=== PATIENT | female | born 1990 | race Caucasian/White ===

== ENCOUNTER → 2017-02-09 | Day surgery (SDC) | payer OTHER ==
[~2017-02-09] VITALS: Ht 170.1 cm; Wt 88.5 kg
[~2017-02-09] MED LIST: ALOGLIPTIN6.25 MG PO; AMOXICILLIN500 MG PO; ANAPROX DS550 MG PO; ATARAX25 MG PO; BACTRIM DS 8001 TA1 PO; BENADRYL50 MG PO; BIAXIN500 MG PO; CIPRO500 MG PO; CLARITIN10 MG PO; DOXYCYCLINE MO100 MG PO; ELIMITE 5%60 GM PO; GLYBURIDE5 MG PO; HYDROCODONE BIT1 T11 PO; JANUVIA100 MG PO; METFORMIN1000 MG PO; MIRENA52 MG IU; MOTRIN600 MG PO; MOTRIN800 MG PO; Motrin,Rufen800 MG PO; NAPROSYN500 MG PO; NKHM; PREDNISONE10 MG PO; PRENATAL1 TA1 PO; SUDAFED60 MG PO; TAGAMET400 MG PO; TOBRADEX 0.1% OT; TRAMADOL HCL50 MG PO; ZITHROMAX Z PA250 MG PO; ZYRTEC10 MG PO
--- NOTE | ~2017-02-09 | O ---
[place], [place] OPERATIVE NOTE NAME: MIRANDA RUSS UNIT #: [id number] ROOM: DOCTOR: ADRYAN HINOJOSA MD BIRTHDATE: [birth year] DOS: 02/09/2017 PREOPERATIVE DIAGNOSIS: Retained ventilation tubes. POSTOPERATIVE DIAGNOSIS: Retained ventilation tubes. OPERATION: Removal of retained ventilation tubes. SURGEON: Dr. Hinojosa. ANESTHESIA: General. INDICATIONS: She is being taken to the operating room for removal of retained ventilation tubes. OPERATIVE FINDINGS AND PROCEDURE: Following induction of general anesthesia, the patient was positioned supine on the OR table and draped in a standard fashion for ear surgery. The surgical microscope was brought into the operative field. The ears were examined, and retained synthetic ventilation tubes were removed from the ear canals bilaterally. Topical ciprofloxacin drops were then instilled in both ears. The patient tolerated the procedure well, was awakened and transported to PACU in satisfactory condition. ADRYAN HINOJOSA MD CM:OPRECORD:OPERATIVE NOTE [id number] ADRYAN HINOJOSA MD 02/09/17 1048 interface
[2017-02-09 09:00] VITALS: BP 106/70
[2017-02-09 10:16] VITALS: BP 99/61
[2017-02-09 10:31] VITALS: BP 104/62
[2017-02-09 10:46] VITALS: BP 116/75
[2017-02-09 11:01] VITALS: BP 107/65
[2017-02-09 11:12] VITALS: BP 108/64
== END | disposition home or self-care (01) ==
LOC: SDC 02-04 08:45
DX: H74.8X3 Other specified disorders of middle ear and mastoid, bilateral (principal); E11.9 Type 2 diabetes mellitus without complications; Z98.890 Other specified postprocedural states; Z82.49 Family history of ischemic heart disease and other diseases of the circulatory system; Z80.9 Family history of malignant neoplasm, unspecified; F17.210 Nicotine dependence, cigarettes, uncomplicated

== ENCOUNTER 2017-10-07 21:20 | Emergency (ER) | payer OTHER ==
[2017-10-07] MEDS ORDERED: METOPROLOL SUCC50 M1 PO (21:34)
[2017-10-07 21:35] VITALS: BP 142/92
[2017-10-07] MEDS ORDERED: VISTARIL50 MG PO (21:56)
== END 2017-10-07 22:05 | disposition home or self-care (01) ==
LOC: ED 21:20
DX: L25.9 Unspecified contact dermatitis, unspecified cause (principal); F17.200 Nicotine dependence, unspecified, uncomplicated; F10.10 Alcohol abuse, uncomplicated; Z79.84 Long term (current) use of oral hypoglycemic drugs; Z79.899 Other long term (current) drug therapy

== ENCOUNTER 2018-06-14 17:43 | Inpatient (IN) | payer OTHER ==
[~2018-06-14] VITALS: Ht 170.1 cm; Wt 87.1 kg
--- NOTE | ~2018-06-14 | EKG ---
[place], [place] ELECTROCARDIOGRAM REPORT NAME: MIRANDA RUSS UNIT #: [id number] ROOM: 404 DOCTOR: MUKUL DRAFT REPORT BIRTHDATE: [birth year] [facility] Test Date: 2018-06-14 Test Time: 17:53:47 Pat Name: MIRANDA RUSS Department: Room: 404 Gender: F Food Editor: Araceli Hernadez : 1990 Requested By: BUCKY MONAHAN Order Number: [id number] Reading MD: Mandy Gutierrez MD Measurements Intervals [place] Rate: 101 P: 56 MO: 151 QRS: 61 QRSD: 84 T: 19 QT: 321 QTc: 416 Interpretive Statements Sinus tachycardia Borderline Q waves in inferior leads Electronically Signed On 06-15-2018 12:07:25 PDT by Mandy Gutierrez MD CM:EKGRPT:ELECTROCARDIOGRAM REPORT [id number] 1207 BUCKY GUILLEN DRAFT REPORT BUCKY MONAHAN DO
--- NOTE | ~2018-06-14 | CON ---
[place], [place] REPORT OF CONSULTATION NAME[id number] UNIT #: [id number] ROOM: 404 DOCTOR: DAQUAN AJ MD BIRTHDATE: [birth year] DOS: 06/15/2018 REASON FOR CONSULTATION: Chest pain and tachycardia. HISTORY OF PRESENT ILLNESS: The patient is a 28-year-old patient with history of diabetes, nonmorbid obesity, was admitted for intermittent left-sided chest pain. She described this pain as sharp pain at rest, sometimes on activity. This has been happening for the past couple of weeks and she describes a sharp sensation near the left chest and left breast area. No radiation, no associated nausea, diaphoresis, or dizziness. Sometimes the pain lasts for a few seconds, but yesterday the pain lasted intermittently for most of the day. Again, she has no associated nausea, shortness of breath or diaphoresis. One time, the pain did radiate to her left shoulder. She was complaining of occasional tingling, numbness in the left hand and also occasional heart racing, but no associated dizziness or syncope. Cardiology consulted for further recommendations. She had history of rapid heart rate, was on metoprolol for about a year, but she is still having occasional rapid heart rate, without any associated dizziness or syncope. No nausea, vomiting, diarrhea. No fever and chills, no cough, no hemoptysis. No bladder or bowel symptoms. No musculoskeletal symptoms, no headaches. In the Emergency Room, she had a chest CT that was negative for pulmonary embolism. On the monitor, she had a few episodes of sinus tachycardia, but no significant heart blocks or bradyarrhythmias noted. Apparently had history of sinus arrhythmia in the past and was on metoprolol. The dose was decreased due to low blood pressure. REVIEW OF SYSTEMS: Review of the 10 system negative except as mentioned above. PAST MEDICAL HISTORY: 1. Type 2 diabetes mellitus. 2. Sinus arrhythmia or sinus tachycardia. 3. Non-morbid obesity. PAST SURGICAL HISTORY: History of D and C and . SOCIAL HISTORY: The patient does not use illicit drugs. Former smoker, social alcohol. FAMILY HISTORY: Father had colon cancer. Mother is healthy. ALLERGIES: No known drug allergies. HOME MEDICATIONS: Reviewed. PHYSICAL EXAMINATION: VITAL SIGNS: Blood pressure 120/70, pulse 60, respirations 18, weight 87 kilos, BMI 30. GENERAL: Alert, comfortable, in no acute distress. NECK: Supple, no distended neck veins, no carotid bruit. CHEST: Symmetrical, nontender. LUNGS: Clear to auscultation bilaterally. [place], [place] REPORT OF CONSULTATION NAME: MIRANDA RUSS UNIT #: [id number] ROOM: 404 DOCTOR: DAQUAN AJ MD BIRTHDATE: [birth year] HEART: Regular rhythm, no S3, no palpable thrills. ABDOMEN: Bowel sounds normal, nontender. EXTREMITIES: No edema. Distal pulses palpable. SKIN: Warm and dry. No cyanosis, no clubbing. RECTAL: Deferred. GENITOURINARY: Deferred. NEUROLOGIC: The patient is alert, oriented. No focal neurologic deficit. REVIEW OF THE DIAGNOSTIC TESTS: EKG showed sinus rhythm. Normal QT interval on the monitor. The patient has mild sinus tachycardia on rhythm strips. Her labs and imaging studies reviewed. IMPRESSION: 1. Chest pain, atypical, myocardial infarction ruled out. 2. Borderline sinus tachycardia. 3. Non-morbid obesity. 4. Diabetes type 2. 5. Mild hypokalemia. RECOMMENDATIONS: 1. Continue current medication. We will recommend a 48-hour outpatient Holter monitor. This will be done by Dr. Alirio Cox. 2. If she develops recurrent exertional chest pain, then I would recommend a treadmill stress test. 3. The patient counseled to cut back on her caffeine intake. 4. Check her blood pressure and heart rates while she is getting dizzy at home. 5. Follow up with [facility] in a couple of weeks after Holter monitor. 6. Above treatment plan was discussed with the patient and her mom who is at bedside and all questions answered. Case also discussed with Dr. Alirio Cox. DAQUAN AJ MD CM:CONSTR:REPORT OF CONSULTATION 1219 06/16/18 0223 interface
--- NOTE | ~2018-06-14 | EKG ---
[place], [place] ELECTROCARDIOGRAM REPORT NAME: MIRANDA RUSS UNIT #: [id number] ROOM: 404 DOCTOR: MUKUL DRAFT REPORT BIRTHDATE: [birth year] [facility] Test Date: 2018-06-14 Test Time: 23:18:51 Pat Name: MIRANDA RUSS Department: Room: 404 Gender: F Picking Table Worker: KEYLA : 1990 Requested By: BUCKY MONAHAN Order Number: [id number] Reading MD: Mandy Gutierrez MD Measurements Intervals [place] Rate: 74 P: 35 [place]: 154 QRS: 58 QRSD: 87 T: 30 QT: 369 QTc: 410 Interpretive Statements Sinus rhythm Electronically Signed On 06-15-2018 12:11:14 PDT by Mandy Gutierrez MD CM:EKGRPT:ELECTROCARDIOGRAM REPORT 2318 1211 BUCKY GUILLEN DRAFT REPORT BUCKY MONAHAN DO
--- NOTE | ~2018-06-14 | EKG ---
[place], [place] ELECTROCARDIOGRAM REPORT NAME: MIRANDA RUSS UNIT #: [id number] ROOM: 404 DOCTOR: MUKUL DRAFT REPORT BIRTHDATE: [birth year] [facility] Test Date: 2018-06-14 Test Time: 20:28:45 Pat Name: MIRANDA RUSS Department: Room: 404 Gender: F Manager Perioperative: MANUEL : 1990 Requested By: BUCKY MONAHAN Order Number: [id number] Reading MD: Mandy Gutierrez MD Measurements Intervals [place] Rate: 86 P: 48 [place]: 154 QRS: 54 QRSD: 86 T: 30 QT: 347 QTc: 415 Interpretive Statements Sinus rhythm Electronically Signed On 06-15-2018 12:10:34 PDT by Mandy Gutierrez MD CM:EKGRPT:ELECTROCARDIOGRAM REPORT 27 1210 BUCKY GUILLEN DRAFT REPORT BUCKY MONAHAN DO
[~2018-06-14 17:43] MED LIST changes: +METOPROLOL SUCC50 M1 PO; +VISTARIL50 MG PO
[2018-06-14 17:52] VITALS: BP 127/73
[2018-06-14 18:24] LABS: BASO # 0.1 10*3/uL (0.0-0.1); BASO % 0.5 % (0.0-1.0); EOS # 0.2 10*3/uL (0.0-0.4); EOS % 1.6 % (1.0-4.0); HEMATOCRIT 43.1 % (37.0-47.0); HEMOGLOBIN 14.8 g/dl (12.0-16.0); LYMPH # 4.1 10*3/uL (1.3-4.4); LYMPH % 32.9 % (27.0-41.0); MEAN CELL VOLUME 85.7 fl (81.0-99.0); MEAN CORPUSCULAR HGB 29.4 pg (27.0-31.0); MEAN CORPUSCULAR HGB CONC 34.3 g/dl (33.0-37.0); MEAN PLATELET VOLUME 11.5 fl (9.6-12.3); MONO # 0.6 10*3/uL (0.1-1.0); MONO % 4.7 % (3.0-9.0); NEUT # 7.5 10*3/uL (2.3-7.9); PLATELET COUNT AUTOMATED 210 10*3/uL (130-400); RED BLOOD COUNT 5.03 10*6/uL (4.10-5.10); RED CELL DISTRI WIDTH 12.7 % (0-14.5); WHITE BLOOD COUNT 12.4 10*3/uL (4.8-10.8)
[2018-06-14 18:35] LABS: ACT PARTIAL THROMBO TIME 25.6 SECONDS (20.8-31.5)
[2018-06-14 18:41] LABS: BETA-HCG, QUANT < 1.0 mIU/mL (1-3); LIPASE 199 U/L (73-393)
[2018-06-14 19:02] VITALS: BP 104/58
[2018-06-14 19:25] LABS: ALBUMIN 4.1 gm/dl (3.1-4.5); ALKALINE PHOSPHATASE 93 U/L (45-117); BUN 8 mg/dl (7-24); CHLORIDE 104 mmol/L (98-107); CREATININE 0.63 mg/dL (0.55-1.02); POTASSIUM 3.5 mmol/L (3.5-5.1); SGOT/AST 35 IU/L (3-35); SGPT/ALT 66 U/L (12-78); SODIUM 138 mmol/L (136-145); TOTAL PROTEIN 7.3 gm/dL (6.4-8.2)
[2018-06-14 19:26] LABS: TROPONIN I < 0.015 ng/ml (<0.045)
[2018-06-14 19:38] VITALS: BP 115/75
[2018-06-14 21:20] VITALS: BP 105/63
[2018-06-14 22:57] VITALS: BP 108/66
[2018-06-14 23:45] VITALS: BP 120/71
[2018-06-14] MEDS ORDERED: BASAG SOL SQ (23:59)
[2018-06-15] MEDS ORDERED: ALOGLIPTIN25 MG PO (00:02)
[2018-06-15 06:26] LABS: BASO # 0.1 10*3/uL (0.0-0.1); BASO % 0.5 % (0.0-1.0); EOS # 0.3 10*3/uL (0.0-0.4); EOS % 2.3 % (1.0-4.0); HEMATOCRIT 41.3 % (37.0-47.0); HEMOGLOBIN 13.8 g/dl (12.0-16.0); LYMPH # 4.3 10*3/uL (1.3-4.4); LYMPH % 37.2 % (27.0-41.0); MEAN CELL VOLUME 86.9 fl (81.0-99.0); MEAN CORPUSCULAR HGB 29.1 pg (27.0-31.0); MEAN CORPUSCULAR HGB CONC 33.4 g/dl (33.0-37.0); MONO # 0.7 10*3/uL (0.1-1.0); MONO % 5.9 % (3.0-9.0); NEUT # 6.3 10*3/uL (2.3-7.9); NEUT % 53.7 % (47.0-73.0); PLATELET COUNT AUTOMATED 198 10*3/uL (130-400); RED BLOOD COUNT 4.75 10*6/uL (4.10-5.10); RED CELL DISTRI WIDTH 12.5 % (0-14.5); WHITE BLOOD COUNT 11.7 10*3/uL (4.8-10.8)
[2018-06-15 06:35] LABS: CHLORIDE 105 mmol/L (98-107); POTASSIUM 3.3 mmol/L (3.5-5.1); SODIUM 140 mmol/L (136-145)
[2018-06-15 06:54] LABS: ALBUMIN 3.3 gm/dl (3.1-4.5); ALKALINE PHOSPHATASE 75 U/L (45-117); BUN 8 mg/dl (7-24); CHOLESTEROL 156 mg/dL (<200); CREATININE 0.69 mg/dL (0.55-1.02); HDL CHOLESTEROL 26 mg/dl (40-60); LDL CHOLESTEROL 96 mg/dL (9-159); PHOSPHOROUS 3.7 mg/dL (2.5-4.9); SGOT/AST 34 IU/L (3-35); SGPT/ALT 61 U/L (12-78); TOTAL PROTEIN 6.6 gm/dL (6.4-8.2); TRIGLYCERIDES 171 mg/dl (<150); VLDL CHOLESTEROL 34 mg/dL (6-40)
[2018-06-15 07:09] LABS: VITAMIN D, 25-HYDROXY 20.8 ng/mL (30-100)
[2018-06-15 09:00] VITALS: BP 94/50
[2018-06-15] MEDS ORDERED: VITAMIN D31000 UNI1 PO (11:38)
[2018-06-15 12:00] VITALS: BP 111/68
== END 2018-06-15 13:32 | disposition home or self-care (01) | DRG 313 ==
LOC: ED 17:43 → EDHOLD 22:11 → 4E 22:11
PROVIDERS: Emergency Medicine; Internal Medicine
DX: R07.89 Other chest pain (principal); R00.0 Tachycardia, unspecified; K76.0 Fatty (change of) liver, not elsewhere classified; D72.829 Elevated white blood cell count, unspecified; F17.210 Nicotine dependence, cigarettes, uncomplicated; E66.8 Other obesity; E11.65 Type 2 diabetes mellitus with hyperglycemia; E11.42 Type 2 diabetes mellitus with diabetic polyneuropathy; E87.6 Hypokalemia; Z98.891 History of uterine scar from previous surgery; Z80.0 Family history of malignant neoplasm of digestive organs; Z80.8 Family history of malignant neoplasm of other organs or systems; Z82.49 Family history of ischemic heart disease and other diseases of the circulatory system; Z79.84 Long term (current) use of oral hypoglycemic drugs; Z79.4 Long term (current) use of insulin; Z68.30 Body mass index [BMI] 30.0-30.9, adult

== ENCOUNTER → 2019-05-18 | Outpatient (CLI) | payer OTHER ==
[~2019-05-18] MED LIST changes: +ALOGLIPTIN25 MG PO; +BASAG SOL SQ; +VITAMIN D31000 UNI1 PO
[2019-05-19 15:08] LABS: RUBEOLA AB IGG 096560 <13.5 AU/mL (Immune >16.4); VARICELLA-ZOSTER IGG 096206 1014 index (Immune >165)
== END | disposition home or self-care (01) ==
LOC: LAB 09:09
PROVIDERS: Family Medicine
DX: Z02.0 Encounter for examination for admission to educational institution (principal)

== ENCOUNTER 2019-10-24 21:36 | Inpatient (IN) | payer OTHER ==
[~2019-10-24] VITALS: Ht 170.2 cm; Wt 88.0 kg
[~2019-10-24 21:36] MED LIST changes: +GLUCOPHAGE500 M1 PO; -METFORMIN1000 MG PO
[2019-10-24 21:40] VITALS: BP 120/90
[2019-10-24 22:46] LABS: BASO # 0.1 10*3/uL (0.0-0.1); BASO % 0.7 % (0.0-1.0); EOS # 0.2 10*3/uL (0.0-0.4); EOS % 2.8 % (1.0-4.0); HEMATOCRIT 39.1 % (37.0-47.0); HEMOGLOBIN 13.2 g/dl (12.0-16.0); LYMPH # 3.4 10*3/uL (1.3-4.4); LYMPH % 41.3 % (27.0-41.0); MEAN CELL VOLUME 77.9 fl (81.0-99.0); MEAN CORPUSCULAR HGB 26.3 pg (27.0-31.0); MEAN CORPUSCULAR HGB CONC 33.8 g/dl (33.0-37.0); MEAN PLATELET VOLUME 10.9 fl (9.6-12.3); MONO # 0.4 10*3/uL (0.1-1.0); MONO % 4.8 % (3.0-9.0); NEUT # 4.2 10*3/uL (2.3-7.9); NEUT % 50.3 % (47.0-73.0); PLATELET COUNT AUTOMATED 231 10*3/uL (130-400); RED BLOOD COUNT 5.02 10*6/uL (4.10-5.10); RED CELL DISTRI WIDTH 15.8 % (0-14.5); WHITE BLOOD COUNT 8.3 10*3/uL (4.8-10.8)
[2019-10-24 22:59] LABS: ALBUMIN 3.7 gm/dl (3.1-4.5); ALKALINE PHOSPHATASE 118 U/L (45-117); BUN 13 mg/dl (7-24); CHLORIDE 107 mmol/L (98-107); CREATININE 0.81 mg/dL (0.55-1.02); POTASSIUM 3.6 mmol/L (3.5-5.1); SGOT/AST 40 IU/L (3-35); SGPT/ALT 88 U/L (12-78); SODIUM 139 mmol/L (136-145); TOTAL PROTEIN 7.1 gm/dL (6.4-8.2)
[2019-10-25 01:08] VITALS: BP 132/86; BP 98/74
--- NOTE | 2019-10-25 01:08 | NUR ---
A 29, admitted to ICCU, under the services of FELICE Moore MD with a diagnosis of anaphylactic reaction and hives. Chief complaint is hives with no difficulty swallowing or shortness of breath. Patient arrived via stretcher from ER. Monitor applied. Initial assessment completed. Vital signs taken and recorded. FELICE MOORE MD notified of admission to the unit. Orders received. See assessment for past medical history, medications and allergies. Patient and/or family oriented to unit. [facility] ICCU visitation policy reviewed. Clothing/patient valuable form completed. TRISH PALMER
[2019-10-25 01:17] VITALS: BP 132/86
[2019-10-25] MEDS ORDERED: PRENATE AM TAB1 EACH PO (01:26)
--- NOTE | 2019-10-25 03:56 | NUR ---
pt. given vistaril at 0339 for itching. grecia dimas rn
[2019-10-25 04:00] VITALS: BP 104/62
--- NOTE | 2019-10-25 04:06 | NUR ---
PT. SLEEPING, VISTARIL EFFECTIVE.
--- NOTE | 2019-10-25 07:09 | NUR ---
Shift chart check completed.24 HR chart check completed.
[2019-10-25 08:00] VITALS: BP 108/80
--- NOTE | 2019-10-25 08:26 | NUR ---
ON ASSESSMENT PT ALERT, ORIENTED, UP IN ROOM. HAS HIVES ON HANDS, FLAT AND SLIGHTLY ITCHY. NONE ON FACE. NO SHORTNESS OF BREATH OR WHEEZE. HEP LOCK INTACT. SEE ALL APPROPRIATE INTERVENTIONS.
[2019-10-25 08:42] LABS: ALBUMIN 3.5 gm/dl (3.1-4.5); ALKALINE PHOSPHATASE 113 U/L (45-117); BUN 11 mg/dl (7-24); CHLORIDE 110 mmol/L (98-107); CREATININE 0.86 mg/dL (0.55-1.02); POTASSIUM 4.2 mmol/L (3.5-5.1); SGOT/AST 32 IU/L (3-35); SGPT/ALT 79 U/L (12-78); SODIUM 139 mmol/L (136-145); TOTAL PROTEIN 6.9 gm/dL (6.4-8.2)
--- NOTE | 2019-10-25 09:35 | NUR ---
VISTARIL FOR ITCHING OF PALMS AND KNEES, BUT NO NEW HIVES.
--- NOTE | 2019-10-25 09:45 | NUR ---
DR VIRAMONTES'S RESIDENT, DR PINON IN TO SEE PT.
--- NOTE | 2019-10-25 10:11 | NUR ---
GIS DEVELOPER, NAYELI, NOTIFIED THAT PATIENT NOW "NON-MONITORED".
--- NOTE | 2019-10-25 11:01 | NUR ---
EARLIER VISTARIL EFFECTIVE. PT DOZING EASILY WITH NO VOICED C/O ITCHING AT THIS TIME.
[2019-10-25 12:00] VITALS: BP 107/64
--- NOTE | 2019-10-25 13:30 | NUR ---
DR SUAREZ IN TO SEE PATIENT.
--- NOTE | 2019-10-25 13:46 | NUR ---
PT WILL BE BEING DISCHARGED TO HOME. HEP LOCK REMOVED.
[2019-10-25] MEDS ORDERED: CLARITIN10 MG PO (14:04)
[2019-10-25] MEDS ORDERED: ZANTAC 150150 MG PO (14:04)
[2019-10-25] MEDS ORDERED: EPIPEN 2-P0.3 MG/0.3 IJ (14:14)
--- NOTE | 2019-10-25 14:41 | NUR ---
DISCHARGED, AMBULATORY TO THE FRONT LOBBY WHERE HER BOYFRIEND/CHILDREN WERE PICKING HER UP. DISCHARGED IN STABLE CONDITION, WITH ALL OF HER BELONGINGS.
== END 2019-10-25 14:41 | disposition home or self-care (01) | DRG 385 ==
LOC: ED 21:36 → EDHOLD 10-25 00:14 → ICCU 10-25 00:57
PROVIDERS: Emergency Medicine; Internal Medicine; ADMIT Internal Medicine
DX: L50.9 Urticaria, unspecified (principal); L29.9 Pruritus, unspecified; E11.65 Type 2 diabetes mellitus with hyperglycemia; E11.42 Type 2 diabetes mellitus with diabetic polyneuropathy; E66.9 Obesity, unspecified; I10 Essential (primary) hypertension; E55.9 Vitamin D deficiency, unspecified; Z68.30 Body mass index [BMI] 30.0-30.9, adult; Z79.4 Long term (current) use of insulin; Z91.040 Latex allergy status; Z79.899 Other long term (current) drug therapy; Z87.891 Personal history of nicotine dependence; Z80.0 Family history of malignant neoplasm of digestive organs; Z82.49 Family history of ischemic heart disease and other diseases of the circulatory system; R71.8 Other abnormality of red blood cells; R74.0 Nonspecific elevation of levels of transaminase and lactic acid dehydrogenase [LDH]; R74.8 Abnormal levels of other serum enzymes

== ENCOUNTER 2020-07-04 10:34 | Emergency (ER) | payer OTHER ==
[~2020-07-04] VITALS: Wt 86.2 kg
[~2020-07-04 10:34] MED LIST changes: +EPIPEN 2-P0.3 MG/0.3 IJ; +PRENATE AM TAB1 EACH PO; +ZANTAC 150150 MG PO
[2020-07-04 11:37] LABS: BASO # 0.1 10*3/uL (0.0-0.1); BASO % 0.4 % (0.0-1.0); EOS # 0.1 10*3/uL (0.0-0.4); EOS % 1.1 % (1.0-4.0); HEMATOCRIT 46.7 % (37.0-47.0); LYMPH # 2.9 10*3/uL (1.3-4.4); LYMPH % 25.3 % (27.0-41.0); MEAN CELL VOLUME 84.6 fl (81.0-99.0); MEAN CORPUSCULAR HGB 28.8 pg (27.0-31.0); MEAN PLATELET VOLUME 11.8 fl (9.6-12.3); MONO # 0.5 10*3/uL (0.1-1.0); MONO % 4.1 % (3.0-9.0); NEUT # 7.9 10*3/uL (2.3-7.9); NEUT % 68.8 % (47.0-73.0); PLATELET COUNT AUTOMATED 223 10*3/uL (130-400); RED BLOOD COUNT 5.52 10*6/uL (4.10-5.10); RED CELL DISTRI WIDTH 12.7 % (0-14.5); WHITE BLOOD COUNT 11.4 10*3/uL (4.8-10.8)
[2020-07-04 11:52] VITALS: BP 108/77
[2020-07-04 11:53] LABS: ACT PARTIAL THROMBO TIME 30.6 SECONDS (20.0-32.1)
[2020-07-04 11:54] LABS: ALBUMIN 4.1 gm/dl (3.1-4.5); ALKALINE PHOSPHATASE 99 U/L (45-117); BUN 9 mg/dl (7-24); CHLORIDE 106 mmol/L (98-107); CREATININE 0.83 mg/dL (0.55-1.02); LIPASE 146 U/L (73-393); POTASSIUM 3.6 mmol/L (3.5-5.1); SGOT/AST 34 IU/L (3-35); SGPT/ALT 63 U/L (12-78); SODIUM 136 mmol/L (136-145)
[2020-07-04 11:55] LABS: BETA-HCG, QUANT < 1.0 mIU/mL (1-3); TROPONIN I < 0.015 ng/ml (<0.045)
== END 2020-07-04 13:05 | disposition home or self-care (01) ==
LOC: ED 10:34
PROVIDERS: Emergency Medicine
DX: R03.0 Elevated blood-pressure reading, without diagnosis of hypertension (principal); R00.2 Palpitations; E11.9 Type 2 diabetes mellitus without complications; F17.200 Nicotine dependence, unspecified, uncomplicated; Z91.040 Latex allergy status; Z79.899 Other long term (current) drug therapy; Z79.4 Long term (current) use of insulin

== ENCOUNTER → 2020-08-14 | Outpatient (CLI) | payer OTHER ==
[2020-08-14 11:21] LABS: FREE T4 1.15 ng/dl (0.76-1.46)
[2020-08-14 11:26] LABS: THYROID STIM HORMONE (HS) 1.74 uIU/ml (0.358-4.75)
== END | disposition home or self-care (01) ==
LOC: CARD 07-15 08:30 → LAB 00:18 → CARD 10:00 → LAB 10:00
PROVIDERS: ATTEND Internal Medicine
DX: R00.2 Palpitations (principal)

== ENCOUNTER → 2020-09-04 | Outpatient (CLI) | payer OTHER | END | disposition home or self-care (01) | LOC: CARD 09:30 | PROVIDERS: ATTEND Internal Medicine | DX: I47.1 Supraventricular tachycardia (principal); R94.31 Abnormal electrocardiogram [ECG] [EKG] ==

== ENCOUNTER 2020-11-15 23:46 | Emergency (ER) | payer OTHER ==
[~2020-11-15] VITALS: Ht 170.1 cm; Wt 86.2 kg
[2020-11-16 00:03] VITALS: BP 144/81
[2020-11-16] MEDS ORDERED: KETOROLAC10 MG PO (00:44)
[2020-11-16] MEDS ORDERED: CYCLOBENZAPRINE10 MG PO (00:44)
== END 2020-11-16 01:00 | disposition home or self-care (01) ==
LOC: ED 23:46
DX: M25.511 Pain in right shoulder (principal); G58.8 Other specified mononeuropathies; Z91.040 Latex allergy status; Z79.899 Other long term (current) drug therapy; Z98.890 Other specified postprocedural states; Z87.891 Personal history of nicotine dependence

== ENCOUNTER → 2020-12-16 | Outpatient (CLI) | payer OTHER ==
[~2020-12-16] MED LIST changes: +CYCLOBENZAPRINE10 MG PO; +KETOROLAC10 MG PO
== END | disposition home or self-care (01) ==
LOC: US 07:30
PROVIDERS: ATTEND Internal Medicine
DX: K76.0 Fatty (change of) liver, not elsewhere classified (principal); N28.1 Cyst of kidney, acquired; R10.13 Epigastric pain

== ENCOUNTER → 2020-12-19 | Outpatient (CLI) | payer OTHER | END | disposition home or self-care (01) | LOC: NM 07:00 | PROVIDERS: ATTEND Internal Medicine | DX: R10.11 Right upper quadrant pain (principal); R14.0 Abdominal distension (gaseous) ==

== ENCOUNTER 2020-12-24 11:56 | Emergency (ER) | payer OTHER ==
[~2020-12-24] VITALS: Ht 170.1 cm; Wt 87.1 kg
[2020-12-24 12:11] VITALS: BP 124/89
[2020-12-24 13:33] LABS: BILIRUBIN Negative (Negative); BLOOD Negative (Negative); CLARITY Clear (Clear); COLOR Yellow (Yellow); GLUCOSE Negative (Negative); KETONE Negative (Negative); LEUKO ESTERASE Negative (Negative); NITRITE Negative (Negative)
[2020-12-24 13:54] LABS: BACTERIA 1+; MUCOUS 1+; RBC 0-2 rbc/hpf (0-2); WBC 0-2 wbc/hpf (0-5)
[2020-12-24 14:07] LABS: BASO # 0.1 10*3/uL (0.0-0.1); BASO % 0.5 % (0.0-1.0); EOS # 0.2 10*3/uL (0.0-0.4); EOS % 1.5 % (1.0-4.0); HEMATOCRIT 47.4 % (37.0-47.0); LYMPH # 3.9 10*3/uL (1.3-4.4); LYMPH % 36.7 % (27.0-41.0); MEAN CELL VOLUME 87.8 fl (81.0-99.0); MEAN CORPUSCULAR HGB 28.9 pg (27.0-31.0); MEAN CORPUSCULAR HGB CONC 32.9 g/dl (33.0-37.0); MEAN PLATELET VOLUME 11.2 fl (9.6-12.3); MONO # 0.5 10*3/uL (0.1-1.0); MONO % 4.5 % (3.0-9.0); NEUT # 6.1 10*3/uL (2.3-7.9); NEUT % 56.5 % (47.0-73.0); PLATELET COUNT AUTOMATED 163 10*3/uL (130-400); RED CELL DISTRI WIDTH 12.8 % (0-14.5); WHITE BLOOD COUNT 10.7 10*3/uL (4.8-10.8)
[2020-12-24 14:22] LABS: ALBUMIN 3.9 gm/dl (3.1-4.5); ALKALINE PHOSPHATASE 82 U/L (45-117); BUN 7 mg/dl (7-24); CHLORIDE 107 mmol/L (98-107); CREATININE 0.72 mg/dL (0.55-1.02); LIPASE 104 U/L (73-393); POTASSIUM 3.7 mmol/L (3.5-5.1); SGOT/AST 18 IU/L (3-35); SGPT/ALT 44 U/L (12-78); SODIUM 138 mmol/L (136-145); TOTAL PROTEIN 7.5 gm/dL (6.4-8.2)
== END 2020-12-24 16:56 | disposition home or self-care (01) ==
LOC: ED 11:56
PROVIDERS: Emergency Medicine; Physician Assistant
DX: R10.9 Unspecified abdominal pain (principal); Z91.040 Latex allergy status; Z79.899 Other long term (current) drug therapy; Z79.4 Long term (current) use of insulin; Z98.890 Other specified postprocedural states; Z87.891 Personal history of nicotine dependence

== ENCOUNTER → 2020-12-30 | Outpatient (CLI) | payer OTHER | END | disposition home or self-care (01) | LOC: NM 00:41 | PROVIDERS: ATTEND Internal Medicine | DX: K30 Functional dyspepsia (principal) ==

== ENCOUNTER 2021-11-25 08:50 | Emergency (ER) | payer OTHER ==
[~2021-11-25] VITALS: Ht 170.1 cm; Wt 86.2 kg
[2021-11-25 08:54] VITALS: BP 112/76
== END 2021-11-25 09:52 | disposition home or self-care (01) ==
LOC: ED 08:50
DX: L30.9 Dermatitis, unspecified (principal); Z91.040 Latex allergy status; Z98.890 Other specified postprocedural states; Z87.891 Personal history of nicotine dependence

== ENCOUNTER 2021-11-26 20:35 | Emergency (ER) | payer OTHER ==
[2021-11-26 20:40] VITALS: BP 134/92
[2021-11-26 21:14] LABS: HEMATOCRIT 42.2 % (37.0-47.0); MEAN CELL VOLUME 84.1 fl (81.0-99.0); MEAN CORPUSCULAR HGB 28.5 pg (27.0-31.0); MEAN CORPUSCULAR HGB CONC 33.9 g/dl (33.0-37.0); MEAN PLATELET VOLUME 11.5 fl (9.6-12.3); PLATELET COUNT AUTOMATED 228 10*3/uL (130-400); RED BLOOD COUNT 5.02 10*6/uL (4.10-5.10); RED CELL DISTRI WIDTH 12.7 % (0-14.5); WHITE BLOOD COUNT 14.5 10*3/uL (4.8-10.8)
[2021-11-26 21:16] LABS: MANUAL DIFF REFLEX YES
[2021-11-26 21:27] LABS: ALKALINE PHOSPHATASE 89 U/L (45-117); BUN 14 mg/dl (7-24); CHLORIDE 106 mmol/L (98-107); CREATININE 0.92 mg/dL (0.55-1.02); POTASSIUM 3.5 mmol/L (3.5-5.1); SGOT/AST 22 IU/L (3-35); SGPT/ALT 52 U/L (12-78); SODIUM 138 mmol/L (136-145); TOTAL PROTEIN 7.2 gm/dL (6.4-8.2)
[2021-11-26 21:45] LABS: ATYPICAL LYMPHS 5 % (0-0); PLATELET SUFFICIENCY NORMAL (NORMAL); TOTAL CELLS COUNTED 100 #CELLS
== END 2021-11-26 22:46 | disposition home or self-care (01) ==
LOC: ED 20:35
PROVIDERS: Internal Medicine
DX: T78.49XA Other allergy, initial encounter (principal); E11.65 Type 2 diabetes mellitus with hyperglycemia; D72.829 Elevated white blood cell count, unspecified; Z91.040 Latex allergy status; Z79.899 Other long term (current) drug therapy; Z98.890 Other specified postprocedural states; Z96.22 Myringotomy tube(s) status; Z87.891 Personal history of nicotine dependence; X58.XXXA Exposure to other specified factors, initial encounter

== ENCOUNTER → 2021-12-16 | Outpatient (CLI) | payer OTHER ==
[2021-12-17 13:07] LABS: t-TRANSGLUTAMINASE (tTG) IGA <2 U/mL (0-3)
[2021-12-18 12:08] LABS: C1 ESTERACE INHIB,TOTAL 29 mg/dL (21-39)
== END | disposition home or self-care (01) ==
LOC: LAB 08:41
PROVIDERS: ATTEND Internal Medicine
DX: T78.2XXA Anaphylactic shock, unspecified, initial encounter (principal); X58.XXXA Exposure to other specified factors, initial encounter

== ENCOUNTER 2022-04-14 09:18 | Emergency (ER) | payer BC, OTHER ==
[~2022-04-14] VITALS: Ht 170.1 cm; Wt 81.6 kg
[2022-04-14 09:25] VITALS: BP 126/90
[2022-04-14] MEDS ORDERED: ATORVASTATIN CA20 M1 PO (09:26)
[2022-04-14] MEDS ORDERED: CITALOPRAM20 MG PO (09:26)
[2022-04-14] MEDS ORDERED: LANTUS SOL100 UNIT/1 SQ (09:27)
[2022-04-14] MEDS ORDERED: Lopressor25 MG PO (09:27)
[2022-04-14] MEDS ORDERED: TOPAMAX15 M1 PO (09:28)
[2022-04-14] MEDS ORDERED: TRULICITY1.5 MG/0.5 SC (09:28)
[2022-04-14] MEDS ORDERED: OMEPRAZOLE40 MG PO (09:28)
[2022-04-14] MEDS ORDERED: TOPIRAMATE25 M3 PO (09:29)
[2022-04-14 10:02] LABS: BILIRUBIN Negative (Negative); BLOOD Negative (Negative); CLARITY Clear (Clear); COLOR Yellow (Yellow); GLUCOSE Negative (Negative); KETONE Negative (Negative); LEUKO ESTERASE Negative (Negative); NITRITE Negative (Negative)
[2022-04-14 10:14] LABS: BACTERIA TRACE; MUCOUS 1+
[2022-04-14 10:24] LABS: BASO # 0.1 10*3/uL (0.0-0.1); BASO % 0.5 % (0.0-1.0); EOS # 0.2 10*3/uL (0.0-0.4); EOS % 1.9 % (1.0-4.0); LYMPH # 2.8 10*3/uL (1.3-4.4); LYMPH % 25.9 % (27.0-41.0); MEAN CORPUSCULAR HGB 29.2 pg (27.0-31.0); MEAN CORPUSCULAR HGB CONC 34.4 g/dl (33.0-37.0); MEAN PLATELET VOLUME 11.7 fl (9.6-12.3); MONO # 0.5 10*3/uL (0.1-1.0); MONO % 4.8 % (3.0-9.0); NEUT # 7.3 10*3/uL (2.3-7.9); NEUT % 66.5 % (47.0-73.0); PLATELET COUNT AUTOMATED 191 10*3/uL (130-400); RED BLOOD COUNT 5.06 10*6/uL (4.10-5.10); RED CELL DISTRI WIDTH 12.8 % (0-14.5); WHITE BLOOD COUNT 10.9 10*3/uL (4.8-10.8)
[2022-04-14 10:41] LABS: ALKALINE PHOSPHATASE 94 U/L (45-117); BUN 6 mg/dl (7-24); CHLORIDE 107 mmol/L (98-107); CREATININE 0.71 mg/dL (0.55-1.02); LIPASE 186 U/L (73-393); SGOT/AST 28 IU/L (3-35); SGPT/ALT 59 U/L (12-78); SODIUM 136 mmol/L (136-145); TOTAL PROTEIN 7.2 gm/dL (6.4-8.2)
[2022-04-14] MEDS ORDERED: LOMOTIL 2.5-0.1 EACH PO (15:30)
== END 2022-04-14 16:35 | disposition home or self-care (01) ==
LOC: ED 09:18
PROVIDERS: Emergency Medicine
DX: B34.9 Viral infection, unspecified (principal); Z20.822 Contact with and (suspected) exposure to COVID-19; R19.7 Diarrhea, unspecified; I10 Essential (primary) hypertension; Z91.040 Latex allergy status; Z79.899 Other long term (current) drug therapy; Z98.890 Other specified postprocedural states; Z87.891 Personal history of nicotine dependence

== ENCOUNTER 2024-05-08 21:49 | Emergency (ER) | payer BC ==
[~2024-05-08] VITALS: Ht 170.1 cm; Wt 79.8 kg
[~2024-05-08 21:49] MED LIST changes: +ATORVASTATIN CA20 M1 PO; +CITALOPRAM20 MG PO; +LANTUS SOL100 UNIT/1 SQ; +LOMOTIL 2.5-0.1 EACH PO; +Lopressor25 MG PO; +OMEPRAZOLE40 MG PO; +TOPAMAX15 M1 PO; +TOPIRAMATE25 M3 PO; +TRULICITY1.5 MG/0.5 SC
[2024-05-08 21:56] VITALS: BP 106/82
[2024-05-08 22:28] LABS: BASO # 0.1 10*3/uL (0.0-0.1); BASO % 0.8 % (0.0-1.0); EOS # 0.3 10*3/uL (0.0-0.4); EOS % 2.8 % (1.0-4.0); HEMATOCRIT 42.3 % (37.0-47.0); LYMPH # 3.2 10*3/uL (1.3-4.4); LYMPH % 36.2 % (27.0-41.0); MEAN CELL VOLUME 83.8 fl (81.0-99.0); MEAN CORPUSCULAR HGB 28.7 pg (27.0-31.0); MEAN CORPUSCULAR HGB CONC 34.3 g/dl (33.0-37.0); MEAN PLATELET VOLUME 11.1 fl (9.6-12.3); MONO # 0.5 10*3/uL (0.1-1.0); MONO % 5.7 % (3.0-9.0); NEUT # 4.8 10*3/uL (2.3-7.9); NEUT % 54.2 % (47.0-73.0); PLATELET COUNT AUTOMATED 195 10*3/uL (130-400); RED BLOOD COUNT 5.05 10*6/uL (4.10-5.10); WHITE BLOOD COUNT 8.9 10*3/uL (4.8-10.8)
[2024-05-08 22:50] LABS: BUN 7 mg/dl (9-23); CHLORIDE 107 mmol/L (98-107); POTASSIUM 3.6 mmol/L (3.4-5.1)
[2024-05-09] MEDS ORDERED: methylPREDNISolone sod succ 125 MG VIAL IM ONE (00:05)
== END 2024-05-09 00:09 | disposition home or self-care (01) ==
LOC: ED 21:49
PROVIDERS: Internal Medicine
DX: B34.9 Viral infection, unspecified (principal); Z20.822 Contact with and (suspected) exposure to COVID-19; R42 Dizziness and giddiness; E11.9 Type 2 diabetes mellitus without complications; Z91.040 Latex allergy status; Z98.890 Other specified postprocedural states; Z87.891 Personal history of nicotine dependence

== ENCOUNTER 2024-12-12 10:20 | Emergency (ER) | payer BC ==
[~2024-12-12] VITALS: Ht 170.1 cm; Wt 79.0 kg
[2024-12-12 10:35] VITALS: BP 100/72
[2024-12-12] MEDS ORDERED: SERTRALINE HYDR50 MG PO (10:37)
[2024-12-12] MEDS ORDERED: FARXIGA10 M1 PO (10:37)
[2024-12-12] MEDS ORDERED: MOUNJARO5 MG/0.51 SQ (10:38)
[2024-12-12 11:17] LABS: BASO # 0.1 10*3/uL (0.0-0.1); BASO % 0.6 % (0.0-1.0); EOS # 0.1 10*3/uL (0.0-0.4); EOS % 1.6 % (1.0-4.0); HEMATOCRIT 42.7 % (37.0-47.0); MEAN CELL VOLUME 81.8 fl (81.0-99.0); MEAN CORPUSCULAR HGB 28.2 pg (27.0-31.0); MEAN CORPUSCULAR HGB CONC 34.4 g/dl (33.0-37.0); MONO # 0.4 10*3/uL (0.1-1.0); NEUT # 5.2 10*3/uL (2.3-7.9); NEUT % 62.9 % (47.0-73.0); PLATELET COUNT AUTOMATED 186 10*3/uL (130-400); RED BLOOD COUNT 5.22 10*6/uL (4.10-5.10); RED CELL DISTRI WIDTH 13.2 % (0-14.5); WHITE BLOOD COUNT 8.3 10*3/uL (4.8-10.8)
[2024-12-12 11:28] LABS: ACT PARTIAL THROMBO TIME 28.5 SECONDS (20.0-32.1)
[2024-12-12 11:33] LABS: BUN 9 mg/dl (9-23); CHLORIDE 106 mmol/L (98-107); POTASSIUM 3.7 mmol/L (3.4-5.1)
[2024-12-12] MEDS ORDERED: traMADol Hydrochloride 50 MG TAB PO ONE (13:40)
[2024-12-12] MEDS ORDERED: MELOXICAM15 MG PO (13:44)
== END 2024-12-12 13:56 | disposition home or self-care (01) ==
LOC: ED 10:20
PROVIDERS: Internal Medicine
DX: M54.2 Cervicalgia (principal); Z79.899 Other long term (current) drug therapy; Z79.01 Long term (current) use of anticoagulants; Z98.890 Other specified postprocedural states